=== PATIENT | male | born 1935 | race Caucasian/White ===

== ENCOUNTER 2018-01-15 17:10 | Inpatient (IN) ==
[2018-01-15] MEDS ORDERED: VANCOMYCIN INJ 1,000 MG in SODIUM CHLORIDE 0.9% 250 ML IV STA (21:01)
[2018-01-15] MEDS ORDERED: CEFEPIME 2,000 MG in SODIUM CHLORIDE 0.9% 100 ML IV STA (21:10)
[2018-01-15 21:50] LABS: Basophils # 0.1 10*3/uL (0.0-0.2); Basophils % 0.4 % (0.0-0.8); Eosinophils # 0.1 10*3/uL (0.0-0.87); Eosinophils % 0.5 % (0.00-10.9); Hematocrit 33.4 VOL% (42.0-52.0); Immature Granulocytes % 1.3 %; Immature Granulocytes Absolute 0.15 #; Lymphocytes # 0.6 10*3/uL (1.4-4.0); Lymphocytes % 5.5 % (21.2-54.2); Mean Corpuscular HGB Conc 32.9 GM/DL (32-36); Mean Corpuscular Hemoglobin 29 PG (27-34); Mean Corpuscular Volume 88.1 FL (87-102); Mean Platelet Volume 9.7 FL (9.6-12.0); Monocytes # 1.7 10*3/uL (0.11-0.8); Monocytes % 15.3 % (1.7-12.7); Neutrophils # 8.7 10*3/uL (1.4-7.4); Platelet Count 349 T/CUMM (130-400); Red Blood Count 3.79 MC/CUMM (3.8-5.5); Red Cell Distribution Width 15.7 % (9.3-17.3); White Blood Count 11.3 T/CUMM (4-12)
[2018-01-15 22:00] LABS: INR 1.3; PT Patient Result 13.4 SECS
[2018-01-15 22:11] LABS: Lactic Acid 1.6 MMOL/L (0.4-2.0)
[2018-01-15 22:21] LABS: Alanine Aminotransferase 59 U/L (16-61); Albumin 2.6 G/DL (3.4-5.0); Alkaline Phosphatase 184 U/L (45-117); Aspartate Amino Transferase 64 U/L (0-37); Bilirubin,Total < 0.39 MG/DL (0.2-1.0); Blood Urea Nitrogen 33 MG/DL (7-18); Calcium 9.2 MG/DL (8.5-10.1); Glucose 155 MG/DL (74-106); Osmolality,Calculated 271.7 MOS/KG (273-304); Potassium 4.3 MMOL/L (3.5-5.1); Sodium 131 MMOL/L (136-145); Total Protein 7.6 G/DL (6.4-8.3)
[2018-01-15] MEDS ORDERED: VANCOMYCIN 1,000 MG VIAL ONE (22:30)
[2018-01-15] MEDS ORDERED: CEFEPIME 1,000 MG VIAL ONE (22:32)
[2018-01-15 23:33] LABS: Sedimentation Rate-Westergren 65 MM/HR (0-20)
[2018-01-16 00:02] LABS: Apearance,Urine CLEAR (Clear); Bacteria,Urine Occasional /HPF (Few); Bilirubin,Urine Negative (Negative); Blood, Urine Negative (Negative); Glucose,Urine (UA) Negative (Negative); Ketones,Urine Negative (Negative); Mucus,Urine Occasional /LPF (Occasional); Nitrite,Urine Negative (Negative); Protein,Urine 30 MG/DL; RBC,Urine 1 /HPF (0-4); Urine Color Yellow (Yellow); Urine Specific Gravity 1.014 (1.001-1.035); Urine Urobilinogen < 2.0 EU/DL (0.2-1.0); WBC,Urine 2 /HPF (0-6)
[2018-01-16] MEDS ORDERED: DEXTROSE 50% 25 GM/50 ML VIAL IV PRN (01:33)
[2018-01-16] MEDS ORDERED: GLUCAGON 1 MG VIAL IM PRN (01:33)
[2018-01-16] MEDS ORDERED: ONDANSETRON 4 MG/2 ML VIAL IV PRN (01:33)
[2018-01-16] MEDS: SODIUM CHLORIDE 0.9% 1,000 ML IV SCH (03:40)
[2018-01-16] MEDS: PIPERACILLIN/TAZOBACTAM 3,375 MG in SODIUM CHLORIDE 0.9% 100 ML IV SCH ×3 (05:10→18:43)
[2018-01-16] MEDS: LEVOTHYROXINE 100 MCG TABLET PO SCH (05:15)
[2018-01-16] MEDS ORDERED: HEPARIN DRIP 25,000 UNITS/500 ML PREMIX IV SCH (06:00)
[2018-01-16 08:30] LABS: Basophils % 0.4 % (0.0-0.8); Eosinophils % 0.5 % (0.00-10.9); Hematocrit 28.2 VOL% (42.0-52.0); Hemoglobin 9.6 GM/DL (14.0-18.0); Immature Granulocytes Absolute 0.08 #; Lymphocytes # 0.5 10*3/uL (1.4-4.0); Lymphocytes % 6.5 % (21.2-54.2); Mean Corpuscular Hemoglobin 29 PG (27-34); Mean Corpuscular Volume 84.7 FL (87-102); Monocytes # 1.4 10*3/uL (0.11-0.8); Monocytes % 16.9 % (1.7-12.7); Neutrophils # 6.1 10*3/uL (1.4-7.4); Neutrophils % 74.7 % (38.7-73.9); Platelet Count 294 T/CUMM (130-400); Red Blood Count 3.33 MC/CUMM (3.8-5.5); Red Cell Distribution Width 15.7 % (9.3-17.3); White Blood Count 8.1 T/CUMM (4-12)
[2018-01-16 09:13] LABS: Albumin 2.3 G/DL (3.4-5.0); Bilirubin,Total 0.4 MG/DL (0.2-1.0); Calcium 8.9 MG/DL (8.5-10.1); Osmolality,Calculated 272.5 MOS/KG (273-304); Potassium 3.9 MMOL/L (3.5-5.1); Total Protein 6.7 G/DL (6.4-8.3)
[2018-01-16] MEDS: INSULIN REGULAR 100 UNIT/ML SUBCUT SCH ×4 (09:34→21:17)
[2018-01-16] MEDS: CAPTOPRIL 12.5 MG TABLET PO SCH ×2 (09:35→21:15)
[2018-01-16] MEDS: FOLIC ACID 0.4 MG TABLET PO SCH (09:35)
[2018-01-16] MEDS: PHENYTOIN ER 100 MG CAPSULE PO SCH ×3 (09:35→21:17)
[2018-01-16] MEDS: FUROSEMIDE 20 MG TABLET PO SCH (09:35)
[2018-01-16] MEDS: CILOSTAZOL 50 MG TABLET PO SCH ×2 (09:35→21:15)
[2018-01-16] MEDS: CYANOCOBALAMIN 500 MCG TABLET PO SCH (09:36)
[2018-01-16] MEDS ORDERED: SEVOFLURANE 1 UNIT/15 MINUTE INH ONE (15:34)
[2018-01-16] MEDS ORDERED: PROPOFOL 200 MG/20 ML VIAL IV ONE (15:34)
[2018-01-16] MEDS ORDERED: fentaNYL 100 MCG/2 ML VIAL ONE (15:35)
[2018-01-16] MEDS ORDERED: PHENYLEPHRINE 1 MG/10 ML SYRINGE IV ONE (15:35)
[2018-01-16] MEDS ORDERED: MORPHINE 4 MG/1 ML VIAL IV PRN (16:36)
[2018-01-16] MEDS: GABAPENTIN 100 MG CAPSULE PO SCH (21:15)
[2018-01-16] MEDS: SIMVASTATIN 10 MG TABLET PO SCH (21:15)
[2018-01-16] MEDS: VANCOMYCIN INJ 1,000 MG in SODIUM CHLORIDE 0.9% 250 ML IV SCH (22:55)
[2018-01-17] MEDS: PIPERACILLIN/TAZOBACTAM 3,375 MG in SODIUM CHLORIDE 0.9% 100 ML IV SCH ×3 (02:48→20:48)
[2018-01-17] MEDS: SODIUM CHLORIDE 0.9% 1,000 ML IV SCH ×3 (03:04→18:24)
[2018-01-17 04:40] LABS: Basophils # 0.1 10*3/uL (0.0-0.2); Basophils % 0.7 % (0.0-0.8); Eosinophils # 0.1 10*3/uL (0.0-0.87); Eosinophils % 0.7 % (0.00-10.9); Hematocrit 28.1 VOL% (42.0-52.0); Hemoglobin 9.3 GM/DL (14.0-18.0); Immature Granulocytes % 1.2 %; Immature Granulocytes Absolute 0.09 #; Lymphocytes # 0.5 10*3/uL (1.4-4.0); Lymphocytes % 6.5 % (21.2-54.2); Mean Corpuscular HGB Conc 33.1 GM/DL (32-36); Mean Corpuscular Hemoglobin 29 PG (27-34); Mean Corpuscular Volume 88.1 FL (87-102); Mean Platelet Volume 9.7 FL (9.6-12.0); Monocytes # 1.4 10*3/uL (0.11-0.8); Monocytes % 18.7 % (1.7-12.7); Neutrophils # 5.5 10*3/uL (1.4-7.4); Neutrophils % 72.2 % (38.7-73.9); Platelet Count 263 T/CUMM (130-400); Red Blood Count 3.19 MC/CUMM (3.8-5.5); Red Cell Distribution Width 15.6 % (9.3-17.3); White Blood Count 7.6 T/CUMM (4-12)
[2018-01-17 05:01] LABS: Lymphocytes 5 % (20-55); Segmented Neutrophils 80 % (50-85); Total Cells Counted 100
[2018-01-17 05:02] LABS: Hypochromasia 1+; Ovalocytes Slight; Platelet Estimate Adequate
[2018-01-17 05:15] LABS: Calcium 8.5 MG/DL (8.5-10.1); Osmolality,Calculated 277.8 MOS/KG (273-304); Potassium 3.4 MMOL/L (3.5-5.1)
[2018-01-17] MEDS: INSULIN REGULAR 100 UNIT/ML SUBCUT SCH ×4 (07:56→20:50)
[2018-01-17] MEDS: LEVOTHYROXINE 100 MCG TABLET PO SCH (07:56)
[2018-01-17] MEDS: PHENYTOIN ER 100 MG CAPSULE PO SCH ×3 (12:24→20:50)
[2018-01-17] MEDS: FOLIC ACID 0.4 MG TABLET PO SCH (12:24)
[2018-01-17] MEDS: CAPTOPRIL 12.5 MG TABLET PO SCH ×2 (12:24→20:56)
[2018-01-17] MEDS: GABAPENTIN 100 MG CAPSULE PO SCH ×3 (12:24→20:50)
[2018-01-17] MEDS: FUROSEMIDE 20 MG TABLET PO SCH (12:24)
[2018-01-17] MEDS: CILOSTAZOL 50 MG TABLET PO SCH ×2 (12:25→20:50)
[2018-01-17] MEDS: CYANOCOBALAMIN 500 MCG TABLET PO SCH (12:25)
[2018-01-17] MEDS: VANCOMYCIN INJ 1,000 MG in SODIUM CHLORIDE 0.9% 250 ML IV SCH (17:44)
[2018-01-18] MEDS: VANCOMYCIN INJ 1,000 MG in SODIUM CHLORIDE 0.9% 250 ML IV SCH ×2 (01:19→17:04)
[2018-01-18] MEDS: PIPERACILLIN/TAZOBACTAM 3,375 MG in SODIUM CHLORIDE 0.9% 100 ML IV SCH ×3 (04:19→20:58)
[2018-01-18] MEDS: LEVOTHYROXINE 100 MCG TABLET PO SCH (05:20)
[2018-01-18] MEDS: PHENYTOIN ER 100 MG CAPSULE PO SCH ×3 (09:31→22:06)
[2018-01-18] MEDS: FOLIC ACID 0.4 MG TABLET PO SCH (09:32)
[2018-01-18] MEDS: CILOSTAZOL 50 MG TABLET PO SCH ×2 (09:32→22:07)
[2018-01-18] MEDS: GABAPENTIN 100 MG CAPSULE PO SCH ×3 (09:32→22:07)
[2018-01-18] MEDS: CAPTOPRIL 12.5 MG TABLET PO SCH ×2 (09:33→22:06)
[2018-01-18] MEDS: INSULIN REGULAR 100 UNIT/ML SUBCUT SCH ×4 (09:35→21:16)
[2018-01-18] MEDS: CYANOCOBALAMIN 500 MCG TABLET PO SCH (09:35)
[2018-01-18] MEDS: FUROSEMIDE 20 MG TABLET PO SCH (09:37)
[2018-01-18 11:00] LABS: INR 1.2; PT Patient Result 12.4 SECS
[2018-01-18] MEDS: PANTOPRAZOLE 40 MG TABLET PO SCH (13:21)
[2018-01-18] MEDS: SODIUM CHLORIDE 0.9% 1,000 ML IV SCH (17:07)
[2018-01-19] MEDS: VANCOMYCIN INJ 1,000 MG in SODIUM CHLORIDE 0.9% 250 ML IV SCH ×2 (01:02→18:03)
[2018-01-19] MEDS: PIPERACILLIN/TAZOBACTAM 3,375 MG in SODIUM CHLORIDE 0.9% 100 ML IV SCH ×3 (04:30→21:19)
[2018-01-19] MEDS: LEVOTHYROXINE 100 MCG TABLET PO SCH (05:51)
[2018-01-19] MEDS: FOLIC ACID 0.4 MG TABLET PO SCH (09:39)
[2018-01-19] MEDS: GABAPENTIN 100 MG CAPSULE PO SCH ×3 (09:39→21:19)
[2018-01-19] MEDS: CYANOCOBALAMIN 500 MCG TABLET PO SCH (09:39)
[2018-01-19] MEDS: PHENYTOIN ER 100 MG CAPSULE PO SCH ×3 (09:40→21:19)
[2018-01-19] MEDS: CILOSTAZOL 50 MG TABLET PO SCH ×2 (09:40→21:19)
[2018-01-19] MEDS: PANTOPRAZOLE 40 MG TABLET PO SCH (09:40)
[2018-01-19] MEDS: INSULIN REGULAR 100 UNIT/ML SUBCUT SCH ×4 (09:40→21:21)
[2018-01-19] MEDS: CAPTOPRIL 12.5 MG TABLET PO SCH ×2 (11:25→21:20)
[2018-01-19] MEDS: FUROSEMIDE 20 MG TABLET PO SCH (11:26)
[2018-01-19] MEDS: SODIUM CHLORIDE 0.9% 1,000 ML IV SCH (18:04)
[2018-01-19] MEDS: SIMVASTATIN 10 MG TABLET PO SCH (21:19)
[2018-01-20] MEDS: VANCOMYCIN INJ 1,000 MG in SODIUM CHLORIDE 0.9% 250 ML IV SCH ×2 (01:40→17:54)
[2018-01-20] MEDS: PIPERACILLIN/TAZOBACTAM 3,375 MG in SODIUM CHLORIDE 0.9% 100 ML IV SCH ×3 (04:50→21:21)
[2018-01-20 05:42] LABS: Basophils % 0.6 % (0.0-0.8); Eosinophils # 0.3 10*3/uL (0.0-0.87); Eosinophils % 4.4 % (0.00-10.9); Hematocrit 25.6 VOL% (42.0-52.0); Hemoglobin 8.7 GM/DL (14.0-18.0); Immature Granulocytes % 1.7 %; Immature Granulocytes Absolute 0.11 #; Lymphocytes # 0.7 10*3/uL (1.4-4.0); Lymphocytes % 10.8 % (21.2-54.2); Mean Corpuscular Hemoglobin 29 PG (27-34); Mean Corpuscular Volume 86.5 FL (87-102); Monocytes # 0.9 10*3/uL (0.11-0.8); Monocytes % 14.1 % (1.7-12.7); Neutrophils # 4.5 10*3/uL (1.4-7.4); Neutrophils % 68.4 % (38.7-73.9); Platelet Count 270 T/CUMM (130-400); Red Blood Count 2.96 MC/CUMM (3.8-5.5); Red Cell Distribution Width 15.9 % (9.3-17.3); White Blood Count 6.6 T/CUMM (4-12)
[2018-01-20 06:19] LABS: Osmolality,Calculated 282.5 MOS/KG (273-304); Potassium 3.4 MMOL/L (3.5-5.1)
[2018-01-20] MEDS: SODIUM CHLORIDE 0.9% 1,000 ML IV SCH (06:47)
[2018-01-20] MEDS: CYANOCOBALAMIN 500 MCG TABLET PO SCH (08:45)
[2018-01-20] MEDS: CILOSTAZOL 50 MG TABLET PO SCH ×2 (08:45→21:24)
[2018-01-20] MEDS: FOLIC ACID 0.4 MG TABLET PO SCH (08:45)
[2018-01-20] MEDS: PANTOPRAZOLE 40 MG TABLET PO SCH (08:46)
[2018-01-20] MEDS: POTASSIUM CHLORIDE 20 MEQ TABLET PO PRN ×3 (08:46→15:27)
[2018-01-20] MEDS: LEVOTHYROXINE 100 MCG TABLET PO SCH (08:46)
[2018-01-20] MEDS: PHENYTOIN ER 100 MG CAPSULE PO SCH ×3 (08:46→21:23)
[2018-01-20] MEDS: INSULIN REGULAR 100 UNIT/ML SUBCUT SCH ×4 (08:47→21:24)
[2018-01-20] MEDS: CAPTOPRIL 12.5 MG TABLET PO SCH ×2 (10:52→21:23)
[2018-01-20] MEDS: FUROSEMIDE 20 MG TABLET PO SCH (10:52)
[2018-01-20] MEDS: GABAPENTIN 100 MG CAPSULE PO SCH ×3 (11:53→21:23)
[2018-01-20] MEDS ORDERED: WARFARIN 10 MG TABLET PO SCH (18:00)
[2018-01-21] MEDS: VANCOMYCIN INJ 1,000 MG in SODIUM CHLORIDE 0.9% 250 ML IV SCH (01:47)
[2018-01-21] MEDS: SODIUM CHLORIDE 0.9% 1,000 ML IV SCH (01:49)
[2018-01-21] MEDS: PIPERACILLIN/TAZOBACTAM 3,375 MG in SODIUM CHLORIDE 0.9% 100 ML IV SCH ×2 (05:35→13:35)
[2018-01-21 06:25] LABS: Basophils # 0.1 10*3/uL (0.0-0.2); Basophils % 0.8 % (0.0-0.8); Eosinophils # 0.3 10*3/uL (0.0-0.87); Hematocrit 25.8 VOL% (42.0-52.0); Hemoglobin 8.7 GM/DL (14.0-18.0); Immature Granulocytes % 1.7 %; Immature Granulocytes Absolute 0.11 #; Lymphocytes # 0.6 10*3/uL (1.4-4.0); Mean Corpuscular HGB Conc 33.7 GM/DL (32-36); Mean Corpuscular Hemoglobin 29 PG (27-34); Mean Corpuscular Volume 86.9 FL (87-102); Mean Platelet Volume 9.7 FL (9.6-12.0); Monocytes # 0.8 10*3/uL (0.11-0.8); Monocytes % 12.8 % (1.7-12.7); Neutrophils # 4.5 10*3/uL (1.4-7.4); Neutrophils % 69.7 % (38.7-73.9); Platelet Count 284 T/CUMM (130-400); Red Blood Count 2.97 MC/CUMM (3.8-5.5); White Blood Count 6.4 T/CUMM (4-12)
[2018-01-21 06:33] LABS: PT Patient Result 10.8 SECS
[2018-01-21 06:40] LABS: Osmolality,Calculated 282.4 MOS/KG (273-304); Potassium 3.8 MMOL/L (3.5-5.1)
[2018-01-21] MEDS: FUROSEMIDE 20 MG TABLET PO SCH (09:43)
[2018-01-21] MEDS: CAPTOPRIL 12.5 MG TABLET PO SCH (09:44)
[2018-01-21] MEDS: LEVOTHYROXINE 100 MCG TABLET PO SCH (09:45)
[2018-01-21] MEDS: FOLIC ACID 0.4 MG TABLET PO SCH (09:46)
[2018-01-21] MEDS: CYANOCOBALAMIN 500 MCG TABLET PO SCH (09:46)
[2018-01-21] MEDS: CILOSTAZOL 50 MG TABLET PO SCH (09:47)
[2018-01-21] MEDS: PHENYTOIN ER 100 MG CAPSULE PO SCH (09:47)
[2018-01-21] MEDS: GABAPENTIN 100 MG CAPSULE PO SCH (09:47)
[2018-01-21] MEDS: PANTOPRAZOLE 40 MG TABLET PO SCH (09:48)
[2018-01-21] MEDS: INSULIN REGULAR 100 UNIT/ML SUBCUT SCH ×2 (09:52→13:34)
[2018-01-21 15:18] VITALS: BP 129/70
== END 2018-01-21 14:05 | disposition hospice, home (50) | DRG 240 ==
LOC: N.ED 17:10 → N.EDINP 01-16 01:33 → N.3E 01-16 03:03